=== PATIENT | male | born 1975 | race Caucasian/White ===

== ENCOUNTER 2024-01-05 06:03 | Inpatient (IN) ==
--- NOTE | 2023-11-08 14:54 | PAT Medication Instructions ---
Medication Instructions Date of Service November 08, 2023 Home Medications atorvastatin 10 mg tablet 10 mg PO HS empagliflozin 25 mg-linagliptin 5 mg tablet (Glyxambi) 1 tab PO QAM pantoprazole 40 mg tablet,delayed release 40 mg PO QAM STOP 3 days before surgery empagliflozin 25 mg-linagliptin 5 mg tablet (Glyxambi) 1 tab PO QAM Take morning of surgery With a small sip of water, OTHERWISE NOTHING TO EAT OR DRINK AFTER MIDNIGHT: pantoprazole 40 mg tablet,delayed release 40 mg PO QAM Take evening before surgery atorvastatin 10 mg tablet 10 mg PO HS Other Notes If you have any questions please call us at [phone] or [phone] or [phone] or [phone]
--- NOTE | 2023-11-12 11:08 | Anesthesiology Consultation ---
Date of Service November 12, 2023 Assessment & Plan (1) Encounter for pre-operative examination: - Check BSG AM DOS - Infectious disease screening: Per assessment on 11/12/23: No known infectious disease contacts or current infectious disease symptoms. No noted recent Covid positive test result. Chart Review Chart Review: Acceptable Risk for Surgery and Patient seen in Pre Admission Testing Teaching & Discussion Pre-Anesthesia Teaching/Discussion Notes: Instructed NPO after midnight before surgery,except medications with 15 cc of water. Medication instructions provided according to the PAT guidelines. History Surgery Operation Date: 11/29/23 10:05 Proposed Procedures p L3-S1 Revision Decompression and Fusion, Spinal Cord Monitoring - Benjamin Sanchez, Height/Weight Height: 5 ft 10 in Weight: 110.9 kg Allergies Allergy/AdvReac Type Severity Reaction Status Date / Time No Known Allergies Allergy Verified 11/08/23 14:06 Medications Home Medications Medication Instructions Recorded Confirmed Last Taken atorvastatin 10 mg tablet 10 mg PO HS 11/08/23 11/08/23 Unknown empagliflozin 25 mg-linagliptin 5 1 tab PO QAM 11/08/23 11/08/23 Unknown mg tablet (Glyxambi) pantoprazole 40 mg tablet,delayed 40 mg PO QAM 11/08/23 11/08/23 Unknown release Past Medical History Medical History Diabetes mellitus, type 2 NIDDM Spinal stenosis Degenerative disc disease Chronic back pain GERD (gastroesophageal reflux disease) Hypertension "borderline"- monitoring, no current medications Hyperlipidemia Exercise / Class Metabolic Activity II 4-5 Yardwork/Stairs/Walk up hill (one FS (no CP, no SOB)) Past Family History Family History Other No family history of adverse response to anesthesia Past Surgical History Surgical History S/P epidural steroid injection History of appendectomy As child S/P lumbar laminectomy 06/2022 ([facility] [place]/Dr Justice) Past Anesthesia History No Hx of Anesthesia Complications and No Family Hx of Anesthesia Complications History of PONV No Hx of Motion Sickness and History of PONV Social History Smoking Status: Never smoker Do You Dip or Chew Tobacco: No Hx Alcohol Use: No Hx Substance Use: No substance use type: does not use Review of Systems Patient denies chest pain, shortness of breath, dyspnea on exertion, fever, chills, cough, wheezing, palpitations. Physical Exam Vital Signs VITALS BP 134/90 P 75 TEMP 98.0 SP02 97%RA RESP 18 PHYSICAL Full cervical extension range of motion. Full TMJ range of motion. TMD 4 finger breaths Mallampati Score 2 Dentition: intact, + crown Lungs: clear throughout to auscultation Cardiac: regular rate and rhythm, no murmurs noted Spine: normal Extremities: no LE edema Lab Results Anesthesia Preop Results Results Anesthesia Widget: WBC 8.35 K/ul (4.8-10.8) 11/12/23 Hgb 16.7 g/dl (14.0-18.0) 11/12/23 Hct 46.7 % (42.0-52.0) 11/12/23 Plt 203 K/uL (130-400) 11/12/23 Na 138 mmol/L (136-145) 11/12/23 K 4.3 mmol/L (3.5-5.1) 11/12/23 Cl 104 mmol/L (98-107) 11/12/23 CO2 29 mmol/L (21-32) 11/12/23 BUN 20 mg/dl (6-23) 11/12/23 Creat 0.91 mg/dl (0.6-1.4) 11/12/23 Glucose Level 114 mg/dl (70-99(Fasting)) H 11/12/23 PT 10.3 Seconds (9.0-12.0) 11/12/23 PTT 29 Seconds (21-31) 11/12/23 INR 0.9 (0.9-1.1) 11/12/23 HA1c 8.4 % (4.5-5.6) H 11/12/23 Urine Color Yellow 11/12/23 Urine Appearance Clear (Clear) 11/12/23 Urine pH 5.5 (4.5-7.5) 11/12/23 Urine Specific [place] > 1.045 (1.000-1.030) H 11/12/23 Urine Protein Negative (Negative) 11/12/23 Urine Glucose (UA) 3+ (Negative) H 11/12/23 Urine Ketones Trace (Negative) H 11/12/23 Urine Blood Negative (Negative) 11/12/23 Urine Nitrite Negative (Negative) 11/12/23 Urine Bilirubin Negative (Negative) 11/12/23 Urine Urobilinogen Negative (Negative) 11/12/23 Urine Leukocyte Esterase Negative (Negative) 11/12/23 Blood Type O Positive 11/12/23 Antibody Screen NEGATIVE 11/12/23 Testing Laboratory Results Surgeon's office made aware of elevated A1C* Electrocardiogram Date: 11/12/23 NSR at 67bpm. Rightward axis. Chest X-Ray Date: 11/12/23 FINDINGS: No pneumothorax. No pleural effusions. No focal lung consolidations to suggest a pneumonia. No evidence for pulmonary edema. No acute fractures identified. The heart is normal in size. IMPRESSION: No acute process.
--- NOTE | 2023-12-29 14:11 | Anesthesiology Consultation ---
Date of Service December 29, 2023 Assessment & Plan (1) Encounter for pre-operative examination: - check BSG am DOS. - medical clearance 12/28/23: "...low risk...cleared for scheduled surgery..." - PCP office note 12/09/23: "...continue glipizide...worsening control, diet and medications discussed, continue monitoring...hypertension: stable...URI, acute..." Pt states only symptoms with URI were muscle aches, chills, congestion, sore throat-denies developing cough or shortness of breath. He states has significantly reduced amount of soda consumption in efforts to improve diabetic control since seeing his PCP. Chart Review Chart Review: Acceptable Risk for Surgery and Patient seen in Pre Admission Testing Teaching & Discussion Pre-Anesthesia Teaching/Discussion Notes: Instructed NPO after midnight before surgery, except medications with 15 cc of water. Medication instructions provided according to the PAT guidelines. History Surgery Operation Date: 11/29/23 10:05 Proposed Procedures p L3-S1 Revision Decompression and Fusion, Spinal Cord Monitoring - Benjamin Sanchez DO Operation Date: 01/05/24 11:05 Proposed Procedures p L3-S1 Revision Decompression and Fusion, Spinal Cord Monitoring - Benjamin Sanchez DO Height/Weight Height: 5 ft 10 in Weight: 110.9 kg Allergies Allergy/AdvReac Type Severity Reaction Status Date / Time metformin Allergy Intermediate GI upset Verified 12/29/23 15:17 tirzepatide [From Mounjaro] Allergy Intermediate GI upset Verified 12/29/23 15:17 rosuvastatin [From Crestor] AdvReac Intermediate paresthesia Verified 12/29/23 15:17 s Medications Home Medications Medication Instructions Recorded Confirmed Last Taken atorvastatin 10 mg tablet 10 mg PO HS 11/08/23 11/08/23 Unknown empagliflozin 25 mg-linagliptin 5 1 tab PO QAM 11/08/23 11/08/23 Unknown mg tablet (Glyxambi) pantoprazole 40 mg tablet,delayed 40 mg PO QAM 11/08/23 11/08/23 Unknown release Past Medical History Medical History (Updated 12/29/23 @ 14:17 by Trinh Robison PA-C) Chronic back pain Degenerative disc disease Diabetes mellitus, type 2 NIDDM GERD (gastroesophageal reflux disease) controlled, stable per pt Hyperlipidemia Hypertension "borderline"- monitoring, no current medications PONV (postoperative nausea and vomiting) denies needing scop patch Spinal stenosis Patient denies h/o stroke, seizures, heart attack, heart failure, HTN, blood clots/DVTs or blood transfusions. Exercise / Class Metabolic Activity II 4-5 Yardwork/Stairs/Walk up hill (denies chest discomfort or shortness of breath with 1 FOS) Past Family History Family History Other No family history of adverse response to anesthesia Past Surgical History Surgical History History of appendectomy As child S/P epidural steroid injection S/P lumbar laminectomy 06/2022 ([facility] [place]/Dr Justice) Past Anesthesia History No Hx of Anesthesia Complications and No Family Hx of Anesthesia Complications History of PONV No Hx of Motion Sickness and History of PONV (denies needing scop patch) Social History Smoking Status: Never smoker Do You Dip or Chew Tobacco: No Hx Alcohol Use: No Hx Substance Use: No substance use type: does not use Review of Systems Patient denies chest pain, shortness of breath, dyspnea on exertion, snoring, witnessed apneas, reflux, fever, chills, cough, wheezing, or palpitations. Physical Exam Vital Signs Vitals BP 142/89 P 82 TEMP 98 SP02 98% on RA RESP 18 Physical Patient resting comfortably in chair in no acute distress, alert and oriented, responding appropriately throughout visit Full cervical extension range of motion without pain TMD 3.5 finger breadths Mallampati Score 3 Dentition: intact, denies chipped or loose teeth, caps/crowns, implants or bridges Lungs: normal respiratory effort. Good air movement, clear throughout to auscultation, no adventitious breath sounds Cardiac: regular rate and rhythm, no murmurs noted Carotid arteries: negative bruit bilat Lab Results Anesthesia Preop Results Results Anesthesia Widget: WBC 8.35 K/ul (4.8-10.8) 11/12/23 Hgb 16.7 g/dl (14.0-18.0) 11/12/23 Hct 46.7 % (42.0-52.0) 11/12/23 Plt 203 K/uL (130-400) 11/12/23 Na 138 mmol/L (136-145) 11/12/23 K 4.3 mmol/L (3.5-5.1) 11/12/23 Cl 104 mmol/L (98-107) 11/12/23 CO2 29 mmol/L (21-32) 11/12/23 BUN 20 mg/dl (6-23) 11/12/23 Creat 0.91 mg/dl (0.6-1.4) 11/12/23 Glucose Level 114 mg/dl (70-99(Fasting)) H 11/12/23 PT 10.3 Seconds (9.0-12.0) 11/12/23 PTT 29 Seconds (21-31) 11/12/23 INR 0.9 (0.9-1.1) 11/12/23 HA1c 8.4 % (4.5-5.6) H 11/12/23 Urine Color Yellow 12/29/23 Urine Appearance Clear (Clear) 12/29/23 Urine pH 5.5 (4.5-7.5) 12/29/23 Urine Specific [place] 1.042 (1.000-1.030) H 12/29/23 Urine Protein Negative (Negative) 12/29/23 Urine Glucose (UA) 3+ (Negative) H 12/29/23 Urine Ketones Negative (Negative) 12/29/23 Urine Blood Negative (Negative) 12/29/23 Urine Nitrite Negative (Negative) 12/29/23 Urine Bilirubin Negative (Negative) 12/29/23 Urine Urobilinogen Negative (Negative) 12/29/23 Urine Leukocyte Esterase Negative (Negative) 12/29/23 Blood Type O Positive 11/12/23 Antibody Screen NEGATIVE 11/12/23 Testing Laboratory Results Surgeon's office made aware UA was updated and of elevated A1c. Electrocardiogram Date: 11/12/23 NSR, rate 67 bpm Rightward axis Chest X-Ray Date: 11/12/23 No acute process.
[~2024-01-05 06:03] MED LIST: ACETAMINOPHEN 500 MG TAB PO SCH; CeleBREX 200 MG CAP PO SCH; GABAPENTIN 900 MG DOSE PO SCH; LR 15ML/HR IV SCH; LR 60ML/HR IV SCH; ceFAZolin 2000MG 2,000 MG/15 ML SYR IV SCH
[2024-01-05] MEDS ORDERED: PROPOFOL IV EMULSION 10 MG/ML 20 ML VIAL IV ONE (06:47)
[2024-01-05] MEDS ORDERED: LIDOCAINE 2% 2 ML VIAL/AMP(20MG/ML) INFIL ONE (06:47)
[2024-01-05] MEDS ORDERED: GLYCOPYRROLATE 0.2 MG/ML VIAL ONE (06:47)
[2024-01-05] MEDS ORDERED: MIDAZOLAM HCL 1 MG/ML 2ML VIAL ONE (06:47)
[2024-01-05] MEDS ORDERED: DEXAMETHASONE SOD INJ 4 MG/ML VIAL ONE (06:47)
[2024-01-05] MEDS ORDERED: fentaNYL citrate PF 100 MCG/2 ML VIAL ONE ×2 (06:47→08:20)
[2024-01-05] MEDS ORDERED: ONDANSETRON INJ 2 MG/ML 2 ML VIAL ONE (06:47)
[2024-01-05] MEDS ORDERED: ROCURONIUM BROMIDE 10 MG/ML 5 ML VIAL IV ONE ×2 (06:47→09:48)
[2024-01-05] MEDS ORDERED: SUGAMMADEX SODIUM 200 MG/2 ML VIAL IV ONE (06:50)
[2024-01-05] MEDS: GABAPENTIN 900 MG DOSE PO SCH (06:58)
[2024-01-05] MEDS: CeleBREX 200 MG CAP PO SCH (06:58)
[2024-01-05] MEDS: ACETAMINOPHEN 500 MG TAB PO SCH (06:58)
[2024-01-05] MEDS: LR 60ML/HR IV SCH (06:59)
[2024-01-05] MEDS: LR 15ML/HR IV SCH (06:59)
[2024-01-05] MEDS ORDERED: DROPERIDOL 5 MG/2 ML VIAL IV PRN (07:06)
[2024-01-05] MEDS ORDERED: ONDANSETRON INJ 2 MG/ML 2 ML VIAL IV PRN (07:06)
[2024-01-05] MEDS ORDERED: ATROPINE SULFATE 0.1 MG/ML 10ML SYR IV PRN (07:06)
[2024-01-05] MEDS ORDERED: ePHEDrine sulfate 50 MG/ML AMP IV PRN (07:06)
[2024-01-05] MEDS ORDERED: HYDROmorphone INJ 2 MG/ML SYR/VIAL IV PRN (07:06)
--- NOTE | 2024-01-05 07:49 | History & Physical Bridge Note ---
Date of Service January 05, 2024 History & Physical Bridge Note I have examined the patient, reviewed the History & Physical and in the interval since the performance of the History & Physical I have noted the following changes of clinical significance: no changes noted
--- NOTE | 2024-01-05 07:50 | History & Physical Report ---
Date of Service January 05, 2024 Assessment & Plan (1) Neurogenic claudication due to lumbar spinal stenosis: Plan: L3-S1 revision decompression and fusion History of Present Illness Chief Complaint: Back and leg pain Primary Care Provider: Prince Dowd This is a 40-year-old male who presents chronic persistent back and leg pain a failed course of nonoperative care is here for surgical invention. Allergies Allergy/AdvReac Type Severity Reaction Status Date / Time metformin Allergy Intermediate GI upset Verified 01/05/24 06:40 tirzepatide [From Mounjaro] Allergy Intermediate GI upset Verified 01/05/24 06:40 rosuvastatin [From Crestor] AdvReac Intermediate paresthesia Verified 01/05/24 06:40 s Home Medications Medication Instructions Recorded Confirmed Type atorvastatin 10 mg tablet 10 mg PO HS 11/08/23 01/05/24 History empagliflozin 25 mg-linagliptin 5 1 tab PO QAM 11/08/23 01/05/24 History mg tablet (Glyxambi) pantoprazole 40 mg tablet,delayed 40 mg PO QAM 11/08/23 01/05/24 History release Past Med/Surg History Medical History (Updated 01/05/24 @ 07:50 by Benjamin Sanchez DO) PONV (postoperative nausea and vomiting) denies needing scop patch Diabetes mellitus, type 2 NIDDM Spinal stenosis Degenerative disc disease Chronic back pain GERD (gastroesophageal reflux disease) controlled, stable per pt Hypertension "borderline"- monitoring, no current medications Hyperlipidemia Surgical History S/P epidural steroid injection History of appendectomy As child S/P lumbar laminectomy 06/2022 ([facility] [place]/Dr Justice) Family History Other No family history of adverse response to anesthesia Social History Smoking Status: Never smoker Second Hand Exposure: No; Do You Dip or Chew Tobacco: No; Tobacco Cessation Education Requested by Patient: No Hx Alcohol Use: No Hx Substance Use: No Preferred Language: Lebanese Communication Ability: Effective Hearing Care Professional Required: No Beliefs That Will Affect Care: None Current Living Situation: Spouse and Family Other Information That Helps Us Care for You: No Feels Safe at Home: Yes Safety Concerns: Feels Safe At This Time Physical Exam Physical Exam: Patient is alert and oriented Heart regular rhythm Lungs clear Results & Data Results & Data Vital Signs (Past 12 Hours) Vital Signs Temp Pulse Resp BP Pulse Ox O2 Del Method 01/05/24 06:44 36.8 C 93 H 20 164/105 H 97 Room Air
[2024-01-05] MEDS: ceFAZolin 2000MG 2,000 MG/15 ML SYR IV SCH ×2 (07:59→17:08)
[2024-01-05] MEDS: BUPIVACAINE/EPINEPHRINE 0.5% MPF 1:200,000 30 ML VIAL ONE (08:46)
[2024-01-05] MEDS: FLOSEAL HEMOSTATIC MATRIX 10ML TOP ONE (10:32)
[2024-01-05] MEDS: ceFAZolin 330 MG/ML 1 GM VIAL ONE (10:32)
--- NOTE | 2024-01-05 10:47 | Operative Report ---
Post Operative Report Pre & Post Diagnosis Operation Date: 01/05/24 07:45 Pre-Op Diagnosis: Neurogenic Claudication Due to Lumbar Spinal Stenosis L3-S1 Post-Op Diagnosis: Neurogenic Claudication Due to Lumbar Spinal Stenosis L3-S1 I identified the patient and participated in the time-out.: Yes Procedure Operation Date: 01/05/24 07:45 Actual Procedures #1 revision decompression bilaterally facetectomies and foraminotomies L3-L4, L4-L5 and L5-S1. #2 posterior spinal fusion L3-L4 L4-5 L5-S1. #3 placed posterior segmental instrumentation L3-S1. #4 interbody fusion L3-L4, L4-5 and L5-S1. #5 placement spiral 13 x 26 mm at L3-L4, 13 x 26 mm at L4-5 and 14 x 26 mm x 2 at L5-S1. #6 placement locally harvested morselized autograft in the posterior gutters. #7 placement of Morpheus bone graft in the interbody space and infuse collagen sponge combined with Koros in the posterior lateral gutters. Surgeon Benjamin Sanchez, DO Aircraft Instrument Tester Grisel Carson Estimated Blood Loss 450 Findings See Below The patient is 5 foot 10 weighing over 112 kg with a BMI in excess of 35. The patient's body habitus did contribute to significant technical difficulty with positioning exposure and the procedure itself and at least 50% increased operative time. Specimens None Indications This is a 48-year-old male presents above-mentioned diagnosis of failed course of nonoperative care is here for surgical invention. Description of Procedure Patient met with identified informed consent obtained. Patient was then taken to the operative suite underwent patient placed in prone position on the Jonny table on top the Chay frame. All bony promises well-padded eyes inspected to ensure no external precipice spinal. This point the lumbar spine was prepped and draped in a sterile fashion. Sharp dissection with the assistance of Bovie cautery probe down to and exposing the remaining lamina and transverse processes of L3 L4-5 and sacral ala bilaterally. From a caudal cephalad fashion revision complete laminectomy of L5 L4 and L3 was performed including bilateral medial facetectomies and foraminotomies addressing severe spinal stenosis and marked adhesions from the previous surgery. Pedicle screws were then placed at L3-L4-L5 and S1 levels bilaterally with assistance of fluoroscopy in the process vale placed. By way of a trans foraminal approach on the left discectomy of L5- S1 was performed endplates guarded to subcortical bleeding bone and the 14 x 26 mm Spira cage filled with Morpheus bone graft tapped in position. Then proceeded the right side of L5-S1 completed the discectomy through a transforaminal approach endplates curetted to subcortical mean bone and placed a second 14 x 26 mm Spira cage with Morpheus bone graft and condition. Then proceeded to L 4 L5 and again by way of a transforaminal approach on the left complete discectomy performed endplates guarded to subcortical bleeding bone and a 13 x 26 mm spiral cage with Morpheus tapped into position. Lastly I approached L3-L4 by way of a transforaminal approach the left complete disce ctomy performed endplates could do subcortical mean bone and a 13 x 26 mm Spira cage filled with Morpheus bone graft tapped in position. The rods were then compressed locked in final position bilaterally. The transverse processes of L2-L3 L4-5 and sacral ala burred to subcortical bleeding bone. Infuse collagen sponge combined with Koros placed in the posterior gutters. 15 round LIBORIO inserted. The incision was then closed with 1 Vicryl to fascia 2-0 Vicryl subcutaneously and 4 Monocryl for final closure. Steri-Strips sterile dressings placed. Patient waken taken PACU stable condition. Please note spinal cord monitoring was utilized at the procedure no changes noted. Lastly Grisel Carson is present at the entire surgery and all the patient positioning complex portion of the surgery and final skin closure. I attest to the content of the Intraoperative Record and any orders documented therein. Any exceptions are noted below.
--- NOTE | 2024-01-05 10:52 | Fluoroscopy Report ---
FL lumbar spine 2-3V CLINICAL HISTORY: L3-S1 REVISION DECOMPRESSION/FUSION COMPARISON STUDY: None. FLUOROSCOPY TIME: 27 seconds FLUOROSCOPY IMAGES: 2 Ka,r: 24.1 mGy FINDINGS: Posterior decompression and fusion from L3 through S1 with screws and rods. The hardware ap pears intact. Disc spacers are in place. IMPRESSION: Fluoroscopic assistance as above. ACT 112: Negative or not required by law. Electronically signed by: Stef Lr M.D. 01/05/2024 10:51 AM
[2024-01-05] MEDS: fentaNYL citrate PF 100 MCG/2 ML VIAL IV PRN (11:25)
[2024-01-05] MEDS ORDERED: ALUMINUM/MAGNESIUM SUSP 30 ML UDC PO PRN (11:57)
[2024-01-05] MEDS ORDERED: HYDROmorphone INJ 0.5 MG/0.5 ML SYR IV PRN (11:57)
[2024-01-05] MEDS ORDERED: PHARMACY GLYCEMIC MGMT CONSULT PRN (11:57)
[2024-01-05] MEDS ORDERED: hydrOXYzine HCl 25 MG TAB PO PRN (11:57)
[2024-01-05] MEDS ORDERED: SOD PHOSPHATE/SOD BIPHOSPHATE ENEMA 132 ML BTL PR PRN (11:57)
[2024-01-05] MEDS ORDERED: PROMETHAZINE HCL 12.5 MG in SODIUM CHLORIDE 0.9% 50 ML IV PRN (11:57)
[2024-01-05] MEDS ORDERED: diphenhydrAMINE Capsule 25 MG CAP PO PRN (11:57)
[2024-01-05] MEDS ORDERED: ACETAMINOPHEN 1,000 MG/100 ML VIAL IV PRN (11:57)
[2024-01-05] MEDS ORDERED: NALOXONE HCL 0.4 MG/1 ML VIAL/CARP IV PRN (11:57)
[2024-01-05] MEDS ORDERED: LORazepam 0.5 MG TAB PO PRN (11:57)
[2024-01-05] MEDS ORDERED: METOCLOPRAMIDE HCL INJ 5 MG/ML 2 ML VIAL IV PRN (11:57)
[2024-01-05] MEDS ORDERED: DO NOT ADMINISTER FLU VACCINE PRN (11:57)
[2024-01-05] MEDS ORDERED: ONDANSETRON 4 MG OD TAB PO PRN (11:57)
[2024-01-05] MEDS ORDERED: HYDROmorphone INJ 1 MG/ML SYRINGE IV PRN (11:57)
[2024-01-05] MEDS ORDERED: LORazepam 0.5 MG in SYRINGE 0.25 ML IV PRN (11:57)
[2024-01-05] MEDS ORDERED: bisacodyL 10 MG SUPP PR PRN (11:57)
[2024-01-05] MEDS ORDERED: DO NOT ADMINISTER PNEUMOCOCCAL VACCINE PRN (11:57)
[2024-01-05] MEDS ORDERED: FAMOTIDINE 20 MG TAB PO PRN (11:57)
[2024-01-05] MEDS: KETOROLAC 30 MG/ML VIAL IV SCH (12:17)
[2024-01-05] MEDS: LACTATED RINGER'S 1,000 ML IV SCH (12:18)
--- NOTE | 2024-01-05 12:18 | Consultation ---
Date of Consultation January 05, 2024 Assessment & Plan (1) S/P spinal surgery: (2) Neurogenic claudication due to lumbar spinal stenosis: Post op day# 0 S/P L3-S1 decompression and fusion by Dr Laura RIVERA # 450 mL Pain management per ortho Wound management per ortho PT/OT as appropriate DVT prophylaxis per ortho Incentive spirometry Monitor H&H for acute blood loss anemia, pre-op Hgb: 16 on 11/12/23 (3) Diabetes mellitus, type 2: A1c: 8.2 on 12/02/2023 (per PCP outpatient note) Hold home oral glycemic agent NovoLog sliding scale per protocol. Glycemic pharmacist managing. Appreciate glycemic management (4) Hyperlipidemia: Continue atorvastatin (5) Hypertension: Reported borderline hypertension Not currently on antihypertensive medications Monitor BP (6) GERD (gastroesophageal reflux disease): Continue PPI (7) Obesity (BMI 30-39.9): BMI: 35 Lifestyle modifications Previously tried Mounjaro with GI side effects DVT Prophylaxis SCDs per ortho Disposition Per primary service Follows with Cirilo SLOAN at [facility] in [place], [place] for routine care Pt was seen and care coordinated with Dr Hooks. See addendum Thank you for this consultation. We will follow the patient with you during their hospital stay. You can reach a [facility] via [facility] Supervising Physician Co-Signing Physician Notes Patient is a 48-year-old male with history of diabetes mellitus, hypertension and other medical problems was consulted for postop medical management. Patient is doing well postoperatively. He denies any chest pain, dyspnea, nausea, vomiting, abdominal pain. Back pain at surgical site is controlled. On exam patient is obese, no apparent distress, normocephalic/atraumatic, EOMI, normal breath sounds, clear to auscultation, S1-S2, no murmur, no pedal edema, abdomen soft, nontender, normal bowel sounds, back: Surgical site in dressing,+ drain, alert, awake, oriented, grossly no focal deficits. Lumbar spinal stenosis with neurogenic claudication S/P lumbar decompression, fusion surgery by Dr. Sanchez. DVT prophylaxis, activity, wound care as per primary team. Continue bowel regimen to prevent constipation. Continue incentive spirometry. Advance diet as tolerated. Monitor CBC for postop blood loss anemia. Agree with insulin per protocol for diabetes management. Monitor BGs. I personally interviewed and examined at bedside. Patient's care is coordinated with Nelly Cunningham. I have reviewed the advanced practitioner's documentation, and I agree with, and take responsibility for that plan of care. Please refer to the documentation above for details of patient's presentation and for discussion of other issues. I spent a total [id number] coordinating, documenting, and providing care for this patient excluding time spent in the performance of separately billed services. History of Present Illness Requesting Physician: Dr. Sanchez Reason for Consultation: Medical management Attending Physician: Benjamin Sanchez, History of Present Illness * Patient is a 48-year-old male with PMH HTN, HLD, DM II, GERD, obesity seen in medical consultation s/p L3-S1 decompression and fusion today by Dr. Sanchez. PMH and home medications discussed with patient and patient's who is at bedside. Postop patient reports pain controlled. Has Pantoja catheter in place. Reports last BM this morning. Denies fever/chills, N/V/D/C, SHOEMAKER, dizziness, CP, SOB, cough, sore throat, abdominal pain, paresthesias, extremity weakness, extremity edema, rashes, urinary symptoms. Allergies Allergy/AdvReac Type Severity Reaction Status Date / Time metformin Allergy Intermediate GI upset Verified 01/05/24 06:40 tirzepatide [From Mounjaro] Allergy Intermediate GI upset Verified 01/05/24 06:40 rosuvastatin [From Crestor] AdvReac Intermediate paresthesia Verified 01/05/24 06:40 s Home Medications Medication Instructions Recorded Confirmed Type atorvastatin 10 mg tablet 10 mg PO HS 11/08/23 01/05/24 History empagliflozin 25 mg-linagliptin 5 1 tab PO QAM 11/08/23 01/05/24 History mg tablet (Glyxambi) pantoprazole 40 mg tablet,delayed 40 mg PO QAM 11/08/23 01/05/24 History release Patient History Medical History Obesity (BMI 30-39.9) PONV (postoperative nausea and vomiting) denies needing scop patch Diabetes mellitus, type 2 NIDDM Spinal stenosis Degenerative disc disease Chronic back pain GERD (gastroesophageal reflux disease) controlled, stable per pt Hypertension "borderline"- monitoring, no current medications Hyperlipidemia Surgical History S/P epidural steroid injection History of appendectomy As child S/P lumbar laminectomy 06/2022 ([facility]/Dr Justice) Family History Father Coronary heart disease Dyslipidemia Hypertension Mother Hypertension Other No family history of adverse response to anesthesia Social History Smoking Status: Never smoker Second Hand Exposure: No; Do You Dip or Chew Tobacco: No; Tobacco Cessation Education Requested by Patient: No Hx Alcohol Use: No Hx Substance Use: No Preferred Language: Spanish Communication Ability: Effective 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 Beliefs That Will Affect Care: None Current Living Situation: Spouse and Family Other Information That Helps Us Care for You: No Feels Safe at Home: Yes Safety Concerns: Feels Safe At This Time Review of Systems Review of Systems: All systems reviewed & are unremarkable except as noted in HPI & below Physical Exam Physical Exam: General: no distress, obese Head: normocephalic, atraumatic Eyes: conjunctiva non-injected, anicteric ENT: normal inspection external ears, nose, mucous membranes moist Neck: supple, trachea midline Lungs: clear, no respiratory distress, no wheezing/rhonchi/rales CV: RRR, no murmur, no pretibial edema Abd: normal BS, soft, non-tender Ext: no cyanosis, no calf tenderness, bilateral dorsiflexion, plantar flexion intact, distal pulses intact, +sensation to light touch Neuro: A&O x 3, no focal deficits noted, normal affect Skin: warm, dry Results & Data Vital Signs (Past 12 Hours) Vital Signs Temp Pulse Pulse Pulse Resp BP Pulse Ox 01/05/24 12:07 01/05/24 11:55 36.9 C 73 14 136/84 97 01/05/24 11:40 36.9 C 82 16 134/86 95 01/05/24 11:30 94 H 15 140/90 96 01/05/24 11:20 80 16 116/79 96 01/05/24 11:10 78 13 118/78 96 01/05/24 11:00 37.2 C 74 12 98/56 L 96 01/05/24 06:44 36.8 C 93 H 20 164/105 H 97 O2 Del Method O2 Flow Rate 01/05/24 12:07 Nasal Cannula 2 01/05/24 11:55 Nasal Cannula 2 01/05/24 11:40 Nasal Cannula 2 01/05/24 11:30 Nasal Cannula 2 01/05/24 11:20 Oxymask 6 01/05/24 11:10 Oxymask 6 01/05/24 11:00 Oxymask 6 01/05/24 06:44 Room Air
--- NOTE | 2024-01-05 13:12 | Pharmacy Report ---
Pharmacy Glycemic Short Note 2 - Date of Service January 05, 2024 - Glycemic Short BSG Results (Last 24 hours): 01/05/24 01/05/24 01/05/24 06:34 11:03 12:52 POC Glucose 181 H 204 H 227 H OUTPATIENT ANTIDIABETIC REGIMEN: * Glyxambi (empaglifozin 25mg/linagliptin 2mg) #1 tablet daily * HbA1c 8.4% (11/12/23) ASSESSMENT: * Rodriguez is a 48 YOM admitted status post L3-S1 spinal decompression/fusion and a history fo type 2 diabetes mellitus. Pharmacy has been consulted to assist with glycemic management while inpatient. * Fasting BSG this AM initiate Lantus at a ~0.2 units/kg to cover basal needs and preop steroids. * Currently receiving perioperative Ancef and will receive IV dexamethasone 6mg x3 days. * Novolog initiated at a weight based stress of 3 based on AdjBW. PLAN FOR INPATIENT GLYCEMIC CONTROL: * Hold outpatient oral diabetes medications * Basal insulin * Lantus 20 units SQ daily * Bolus insulin * NovoLog per scale ACHS or Q6hrs while NPO * Goal Range: Low 110 mg/dL - High 140 mg/dL * Correction Factor: 20 mg/dL/unit * Nutritional / Prandial insulin per carb ratio of 1 unit per 6 grams CHO consumed
--- NOTE | 2024-01-05 13:24 | Anesthesiology Progress Note ---
Date of Service January 05, 2024 Anesthesia Post Procedure Vital Signs Vital Signs: Temp Pulse Pulse Pulse Resp BP Pulse Ox 01/05/24 12:51 88 16 135/79 98 01/05/24 12:22 36.5 C 82 16 131/77 97 01/05/24 12:07 01/05/24 11:55 36.9 C 73 14 136/84 97 01/05/24 11:40 36.9 C 82 16 134/86 95 01/05/24 11:30 94 H 15 140/90 96 01/05/24 11:20 80 16 116/79 96 01/05/24 11:10 78 13 118/78 96 01/05/24 11:00 37.2 C 74 12 98/56 L 96 01/05/24 06:44 36.8 C 93 H 20 164/105 H 97 O2 Del Method O2 Flow Rate 01/05/24 12:51 Nasal Cannula 2 01/05/24 12:22 Nasal Cannula 2 01/05/24 12:07 Nasal Cannula 2 01/05/24 11:55 Nasal Cannula 2 01/05/24 11:40 Nasal Cannula 2 01/05/24 11:30 Nasal Cannula 2 01/05/24 11:20 Oxymask 6 01/05/24 11:10 Oxymask 6 01/05/24 11:00 Oxymask 6 01/05/24 06:44 Room Air Pain Intensity Back: Pain Intensity: 6 Transfer of Care Handoff Completed per policy Notes Mental Status: alert / awake / arousable and participated in evaluation Patient Amnestic to Procedure: Yes Nausea / Vomiting: adequately controlled Pain: adequately controlled Airway Patency, RR, SpO2: stable & adequate BP & HR: stable & adequate Hydration State: stable & adequate Anesthetic Complications: no major complications apparent and Pt Satisfied with anesthetic care
[2024-01-05] MEDS: LANTUS PER UNIT CHARGE SC SCH (13:49)
[2024-01-05] MEDS: INSULIN ASPART PER UNIT CHARGE SC SCH (13:52)
[2024-01-05] MEDS: ACETAMINOPHEN 500 MG TAB PO PRN (15:14)
[2024-01-05] MEDS: ONDANSETRON INJ 2 MG/ML 2 ML VIAL IV PRN (16:22)
[2024-01-05] MEDS: traMADol HCL 50 MG TABLET PO PRN (20:40)
[2024-01-05] MEDS: DOCUSATE SODIUM/SENNA 50/8.6MG TAB PO SCH (20:40)
[2024-01-05] MEDS: ATORVASTATIN 10 MG TAB PO SCH (20:40)
[2024-01-05] MEDS: oxyCODONE HCL IR 5 MG TAB (IMMEDIATE RELEASE) PO PRN (23:05)
[2024-01-06] MEDS: POLYETHYLENE (MIRALAX) 17 GM PACK PO SCH (05:22)
[2024-01-06 07:26] LABS: Basophils # (auto) 0.01 K/uL (0.00-0.20); Basophils % (auto) 0.1 %; Eosinophils # (auto) 0.02 K/uL (0.00-0.50); Eosinophils % (auto) 0.2 %; Hematocrit (blood only) 35.1 % (42.0-52.0); Hemoglobin 12.2 g/dl (14.0-18.0); Immature Granulocytes # (auto) 0.03 K/uL (0.01-0.20); Immature Granulocytes % (auto) 0.2 %; Lymphocytes # (auto) 1.51 K/uL (1.20-3.40); Lymphocytes % (auto) 12.5 %; Mean Corpuscular Hemoglobin 30.7 pg (25.0-34.0); Mean Corpuscular Hgb Conc 34.8 g/dL (32.0-36.0); Mean Corpuscular Volume 88.4 fL (80.0-100.0); Mean Platelet Volume 11.4 fL (9.4-12.4); Monocytes % (auto) 9.1 %; Neutrophils # (auto) 9.39 K/uL (1.40-6.50); Neutrophils % (auto) 77.9 %; Platelet Count 162 K/uL (130-400); RDW Standard Deviation 42.2 fL (36.4-46.3); Red Blood Count 3.97 M/uL (4.70-6.10); White Blood Count 12.06 K/ul (4.8-10.8)
[2024-01-06 07:54] LABS: BUN Creatinine Ratio 19.7 (10-20); Calcium 8.5 mg/dl (8.6-10.3); Creatinine Clr Calc Pharmacy 159.8 ml/min; Est GFR (African American) 128.6 ml/min; Potassium 3.9 mmol/L (3.5-5.1)
--- NOTE | 2024-01-06 08:15 | Orthopedic Progress Note ---
Date of Service January 06, 2024 Assessment & Plan (1) Neurogenic claudication due to lumbar spinal stenosis: Plan: This time initiate physical therapy monitor his LIBORIO output anticipate discharge home in next few days. Admission and Anticipated Discharge Date Admission Date: January 05, 2024 Subjective Back pain controlled leg symptoms markedly improved Physical Exam Physical Exam: Patient is currently in bed. Is comfortable. Is distracted testing. Results & Data Vital Signs (Past 12 Hours) Vital Signs Temp Pulse Resp BP Pulse Ox O2 Del Method 01/06/24 07:48 36.8 C 95 H 17 121/77 96 Room Air 01/06/24 02:24 36.5 C 80 18 138/75 97 Room Air 01/05/24 23:18 36.8 C 76 16 101/73 97 Room Air Queries Orthopedic Spine Obesity: Yes
[2024-01-06] MEDS: dexAMETHasone 6 MG in SYRINGE 0 ML IV SCH (08:27)
[2024-01-06] MEDS: PANTOprazole 40 MG TAB PO SCH (08:27)
[2024-01-06] MEDS: LANTUS PER UNIT CHARGE SC SCH (08:27)
[2024-01-06] MEDS ORDERED: GLUCOSE 40% GEL 15 GM TUBE PO PRN (08:30)
[2024-01-06] MEDS ORDERED: GLUCOSE 10 TAB/TUBE PO PRN (08:30)
[2024-01-06] MEDS ORDERED: CARBOHYDRATES FOR HYPOGLYCEMIA PO PRN (08:30)
[2024-01-06] MEDS ORDERED: DEXTROSE 50% 50 ML SYRINGE IV PRN (08:30)
[2024-01-06] MEDS ORDERED: GLUCAGON FOR INJ 1 MG VIAL IM PRN (08:30)
[2024-01-06] MEDS ORDERED: NON-FORMULARY MEDICATION (Empagliflozin-Linagliptin [Glyxambi] 25-5 mg Tablet) PO SCH (09:00)
--- NOTE | 2024-01-06 10:49 | Pharmacy Report ---
Pharmacy Glycemic Short Note 2 - Date of Service January 06, 2024 - Glycemic Short BSG Results (Last 24 hours): 01/05/24 01/05/24 01/05/24 11:03 12:52 16:23 Glucose POC Glucose 204 H 227 H 296 H 01/05/24 01/06/24 01/06/24 20:39 06:23 07:49 Glucose 143 H POC Glucose 232 H 161 H OUTPATIENT ANTIDIABETIC REGIMEN: * Glyxambi (empaglifozin 25mg/linagliptin 2mg) #1 tablet daily * HbA1c 8.4% (11/12/23) ASSESSMENT: 01/06/24: * BSGs yesterday were [phone] mg/dl. Fasting BSG today was 143 mg/dl. * Patient received total 58 units of insulin yesterday: 20 units basal and 38 units bolus. * IV Dexamethasone 6mg daily x 3 days ordered, 1st dose received today. * Since BSGs have been high, basal insulin dose increased to stress of 3 today. Novolog parameters tightened also to stress of 3. 01/05/24: * Rodriguez is a 48 YOM admitted status post L3-S1 spinal decompression/fusion and a history fo type 2 diabetes mellitus. Pharmacy has been consulted to assist wit h glycemic management while inpatient. * Fasting BSG this AM initiate Lantus at a ~0.2 units/kg to cover basal needs and preop steroids. * Currently receiving perioperative Ancef and will receive IV dexamethasone 6mg x3 days. * Novolog initiated at a weight based stress of 3 based on AdjBW. PLAN FOR INPATIENT GLYCEMIC CONTROL: * Hold outpatient oral diabetes medications * Basal insulin * Lantus 28 units SQ QAM * Bolus insulin * NovoLog per scale ACHS or Q6hrs while NPO * Goal Range: Low 110 mg/dL - High 140 mg/dL * Correction Factor: 15 mg/dL/unit * Nutritional / Prandial insulin per carb ratio of 1 unit per 5 grams CHO consumed
--- NOTE | 2024-01-06 13:31 | Hospitalist Progress Note ---
Date of Service January 06, 2024 Assessment & Plan (1) S/P spinal surgery: (2) Neurogenic claudication due to lumbar spinal stenosis: Plan: Post op day# 01 S/P L3-S1 decompression and fusion by Dr Laura RIVERA # 450 mL Continue pain management Wound management per ortho Hb is 12.2 today (was 16 in Oct 2023) Likely Acute blood loss anemia related to surgery Monitor Hb PT/OT as appropriate (3) Diabetes mellitus, type 2: Plan: A1c: 8.2 on 12/02/2023 (per PCP outpatient note) Hold home oral glycemic agent NovoLog sliding scale per protocol. Glycemic pharmacist managing. Appreciate glycemic management (4) Hyperlipidemia: Plan: Continue atorvastatin (5) GERD (gastroesophageal reflux disease): Plan: Continue PPI (6) Obesity (BMI 30-39.9): Plan: BMI: 35 Lifestyle modifications Previously tried Mounjaro with GI side effects DVT Prophylaxis SCDs per ortho Disposition Per primary service Follows with Cirilo SLOAN at [facility] in [place], [place] for routine care I spent a total of 45 minutes coordinating, documenting and providing care for this patient excluding time spent in performance of separately billed services Admission and Anticipated Discharge Date Admission Date: January 05, 2024 Subjective Patient seen and examined Reports surgical site pain is well controlled Reports radiculopathic pain that usually radiates down his LLE that he had before surgery has resolved so far Denied any other complaints on ROS Physical Exam Constitutional: + well hydrated; no acute distress Eyes: PERRL, conjunctivae normal, anicteric sclerae ENMT: external ear and nose normal, oropharynx normal Respiratory: normal respiratory effort, lungs clear to auscultation Cardiovascular: Rate/Rhythm: regular rate and regular rhythm S1 S2 Gastrointestinal (Abdomen): normal bowel sounds, soft, nontender, no hepatosplenomegaly Musculoskeletal: Clean dressing over surgical site with drain situ Neurologic: PERRL, EOMI, accommodation nl, no face palsy, no dysarthria Psychiatric: A+Ox3, euthymic affect Results & Data Results & Data Vital Signs (Past 12 Hours) Vital Signs Temp Pulse Resp BP Pulse Ox O2 Del Method 01/06/24 11:44 36.7 C 76 17 122/77 96 Room Air 01/06/24 07:48 36.8 C 95 H 17 121/77 96 Room Air 01/06/24 02:24 36.5 C 80 18 138/75 97 Room Air Laboratory Results Abnormal lab results 01/05/24 01/05/24 01/06/24 Range/Units 16:23 20:39 06:23 WBC 12.06 H (4.8-10.8) K/ul RBC 3.97 L (4.70-6.10) M/uL Hgb 12.2 L (14.0-18.0) g/dl Hct 35.1 L (42.0-52.0) % Neut # (Auto) 9.39 H (1.40-6.50) K/uL Jenkins # (Auto) 1.10 H (0.11-0.59) K/uL Glucose 143 H (70-99(Fasting)) mg/dl POC Glucose 296 H 232 H (70-99) mg/dl Calcium 8.5 L (8.6-10.3) mg/dl 01/06/24 01/06/24 Range/Units 07:49 11:38 WBC (4.8-10.8) K/ul RBC (4.70-6.10) M/uL Hgb (14.0-18.0) g/dl Hct (42.0-52.0) % Neut # (Auto) (1.40-6.50) K/uL Jenkins # (Auto) (0.11-0.59) K/uL Glucose (70-99(Fasting)) mg/dl POC Glucose 161 H 194 H (70-99) mg/dl Calcium (8.6-10.3) mg/dl
[2024-01-07 08:42] LABS: Hematocrit (blood only) 36.7 % (42.0-52.0); Hemoglobin 12.5 g/dl (14.0-18.0); Mean Corpuscular Hemoglobin 30.8 pg (25.0-34.0); Mean Corpuscular Hgb Conc 34.1 g/dL (32.0-36.0); Mean Corpuscular Volume 90.4 fL (80.0-100.0); Mean Platelet Volume 10.8 fL (9.4-12.4); Platelet Count 153 K/uL (130-400); RDW Coefficient of Variation 12.9 % (11.5-14.5); RDW Standard Deviation 42.5 fL (36.4-46.3); Red Blood Count 4.06 M/uL (4.70-6.10); White Blood Count 10.54 K/ul (4.8-10.8)
[2024-01-07 09:03] LABS: BUN Creatinine Ratio 23.9 (10-20); Calcium 8.8 mg/dl (8.6-10.3); Creatinine Clr Calc Pharmacy 159.8 ml/min; Est GFR (African American) 128.6 ml/min; Potassium 4.1 mmol/L (3.5-5.1)
--- NOTE | 2024-01-07 09:30 | Orthopedic Progress Note ---
Date of Service January 07, 2024 Assessment & Plan (1) Neurogenic claudication due to lumbar spinal stenosis: Plan: At this time continue physical therapy monitor his LIBORIO output anticipate discharge home tomorrow. Admission and Anticipated Discharge Date Admission Date: January 05, 2024 Subjective Back pain controlled leg symptoms markedly improved Physical Exam Physical Exam: Patient is up and ambulating halls. Is constricted testing. Results & Data Vital Signs (Past 12 Hours) Vital Signs Temp Pulse Resp BP Pulse Ox O2 Del Method 01/07/24 07:16 36.7 C 83 16 127/78 97 Room Air Queries Orthopedic Spine Obesity: Yes
--- NOTE | 2024-01-07 11:08 | Hospitalist Progress Note ---
Date of Service January 07, 2024 Assessment & Plan (1) S/P spinal surgery: (2) Neurogenic claudication due to lumbar spinal stenosis: Plan: Post op day#2 S/P L3-S1 decompression and fusion by Dr Laura RIVERA # 450 mL Continue pain management Wound management per ortho Hb is 12.5 today, was 12.2 yesterday (was 16 in Oct 2023) Likely Acute blood loss anemia related to surgery Stable Monitor Continue PT/OT (3) Diabetes mellitus, type 2: Plan: A1c: 8.2 on 12/02/2023 (per PCP outpatient note) Hold home oral glycemic agent NovoLog sliding scale per protocol. Glycemic pharmacist managing. Appreciate glycemic management (4) Hyperlipidemia: Plan: Continue atorvastatin (5) GERD (gastroesophageal reflux disease): Plan: Continue PPI (6) Obesity (BMI 30-39.9): Plan: BMI: 35 Lifestyle modifications Previously tried Mounjaro with GI side effects DVT Prophylaxis SCDs per ortho Disposition Per primary service Follows with Cirilo SLOAN at [facility] in [place], [place] for routine care I spent a total of 35 minutes coordinating, documenting and providing care for this patient excluding time spent in performance of separately billed services Admission and Anticipated Discharge Date Admission Date: January 05, 2024 Subjective Patient seen and examined Reports surgical site pain is controlled Doing well with PT/OT Yet to have a BM but passing flatus No Nausea/vomiting/abd pain Physical Exam Constitutional: + well hydrated; no acute distress Eyes: PERRL, conjunctivae normal, anicteric sclerae ENMT: external ear and nose normal, oropharynx normal Respiratory: normal respiratory effort, lungs clear to auscultation Cardiovascular: Rate/Rhythm: regular rate and regular rhythm S1 S2 Gastrointestinal (Abdomen): normal bowel sounds, soft, nontender, no hepatosplenomegaly Musculoskeletal: Clean dressing over surgical site with drain in situ Neurologic: PERRL, EOMI, accommodation nl, no face palsy, no dysarthria Psychiatric: A+Ox3, euthymic affect Results & Data Results & Data Vital Signs (Past 12 Hours) Vital Signs Temp Pulse Resp BP Pulse Ox O2 Del Method 01/07/24 07:16 36.7 C 83 16 127/78 97 Room Air Laboratory Results Abnormal lab results 01/05/24 01/06/24 01/06/24 Range/Units 06:31 16:36 20:38 RBC (4.70-6.10) M/uL Hgb (14.0-18.0) g/dl Hct (42.0-52.0) % BUN/Creatinine Ratio (10-20) Glucose (70-99(Fasting)) mg/dl POC Glucose 180 H 166 H (70-99) mg/dl Crossmatch See Detail 01/07/24 01/07/24 01/07/24 Range/Units 07:38 08:11 11:37 RBC 4.06 L (4.70-6.10) M/uL Hgb 12.5 L (14.0-18.0) g/dl Hct 36.7 L (42.0-52.0) % BUN/Creatinine Ratio 23.9 H (10-20) Glucose 145 H (70-99(Fasting)) mg/dl POC Glucose 139 H 184 H (70-99) mg/dl Crossmatch
--- NOTE | 2024-01-07 14:14 | Pharmacy Report ---
Pharmacy Glycemic Short Note 2 - Date of Service January 07, 2024 - Glycemic Short BSG Results (Last 24 hours): 01/06/24 01/06/24 01/07/24 16:36 20:38 07:38 Glucose POC Glucose 180 H 166 H 139 H 01/07/24 01/07/24 08:11 11:37 Glucose 145 H POC Glucose 184 H OUTPATIENT ANTIDIABETIC REGIMEN: * Glyxambi (empaglifozin 25mg/linagliptin 2mg) #1 tablet daily * HbA1c 8.4% (11/12/23) ASSESSMENT: 01/07: * Patient received total 65 units of insulin yesterday: 28 units basal and 37 units bolus. * BSGs yesterday were [phone] mg/dl. Improved from the day before. * For glycemic control closer to goal, novolog correction tightened slightly at lunch today. IV Dexamethasone continues for one more day. 01/06: * BSGs yesterday were [phone] mg/dl. Fasting BSG today was 143 mg/dl. * Patient received total 58 units of insulin yesterday: 20 units basal and 38 units bolus. * IV Dexamethasone 6mg daily x 3 days ordered, 1st dose received today. * Since BSGs have been high, basal insulin dose increased to stress of 3 today. Novolog parameters tightened also to stress of 3. 01/05/24: * Rodriguez is a 48 YOM admitted status post L3-S1 spinal decompression/fusion and a history fo type 2 diabetes mellitus. Pharmacy has been consulted to assist with glycemic management while inpatient. * Fasting BSG this AM initiate Lantus at a ~0.2 units/kg to cover basal needs and preop steroids. * Currently receiving perioperative Ancef and will receive IV dexamethasone 6mg x3 days. * Novolog initiated at a weight based stress of 3 based on AdjBW. PLAN FOR INPATIENT GLYCEMIC CONTROL: * Hold outpatient oral diabetes medications * Basal insulin * Lantus 28 units SQ QAM * Bolus insulin * NovoLog per scale ACHS or Q6hrs while NPO * Goal Range: Low 110 mg/dL - High 140 mg/dL * Correction Factor: 10 mg/dL/unit * Nutritional / Prandial insulin per carb ratio of 1 unit per 5 grams CHO consumed
[2024-01-07] MEDS: MAGNESIUM HYDROXIDE SUSP 30 ML UDC PO PRN (17:44)
[2024-01-08 06:25] LABS: Hematocrit (blood only) 36.4 % (42.0-52.0); Hemoglobin 12.6 g/dl (14.0-18.0); Mean Corpuscular Hgb Conc 34.6 g/dL (32.0-36.0); Mean Corpuscular Volume 89.7 fL (80.0-100.0); Platelet Count 176 K/uL (130-400); RDW Coefficient of Variation 12.6 % (11.5-14.5); RDW Standard Deviation 41.7 fL (36.4-46.3); Red Blood Count 4.06 M/uL (4.70-6.10); White Blood Count 10.33 K/ul (4.8-10.8)
--- NOTE | 2024-01-08 10:56 | Discharge Summary ---
Date of Service January 08, 2024 Admission HPI Per Admitting Provider This is a 40-year-old male who presents chronic persistent back and leg pain a failed course of nonoperative care is here for surgical invention. Principal Diagnosis Lumbar spinal stenosis with neurogenic claudication Discharge Data Allergies Allergy/AdvReac Type Severity Reaction Status Date / Time metformin Allergy Intermediate GI upset Verified 01/05/24 06:40 tirzepatide [From Mounjaro] Allergy Intermediate GI upset Verified 01/05/24 06:40 rosuvastatin [From Crestor] AdvReac Intermediate paresthesia Verified 01/05/24 06:40 s Consultations 01/05/24 11:57 Consult Hospitalist Routine Procedures Performed Operation Date: 01/05/24 07:45 Actual Procedures p L3-S1 Revision Decompression and Fusion, with Application of Bone Morphogenetic Protein, MagnetOs Bone Graft and Morpheus Bone Graft, Interbody Fusion, Spinal Cord Monitoring(Not Applicable) - Benjamin Sanchez DO Ordered Studies 01/05/24 07:45 [place] lumbar spine 2-3V Routine Hospital Course (1) Neurogenic claudication due to lumbar spinal stenosis: Patient underwent multilevel lumbar depression fusion tolerated as well as negative orthopedic for postoperative. Possibly progressed appropriately. LIBORIO drain decreasing well Strength testing subsequently discharged home. Discharge orders instructions found in chart for further review. Total Time Total Time Spent Total Time Spent (In Minutes): 20 minutes Discharge Plan Discharge Items Patient Disposition: Home - Self-Care Reason For Visit: Spinal Stenosis, Lumbar Region without Neurogenic Discharge Diagnosis: Lumbar spinal stenosis with neurogenic claudication Activity: As commented below Non-emergency contact: Primary Care Provider Call non-emergency contact if: you have any medication questions Follow-up/Referrals: Prince Dowd M.D. [Primary Care Provider] - Diet: Regular Ambulatory Orders: Type and Screen (Routine) Timeframe: 1 Day Location: Determined by Patient Ordered By: Tonia Corrigan Attending Provider Instructions: ACTIVITY RECOMMENDATIONS: SELF CARE INSTRUCTIONS AFTER THORACIC/LUMBAR FUSIONS 1. You may walk to your tolerance. It is good exercise for your legs and back. Expect some back and intermittent leg aches and pains. 2. You may perform "counter-top" level activities (make a sandwich, billy with a project, etc.). 3. No bending or lifting of more than 10 pounds or back twisting of any nature (roll like a log when turning in bed). 4. You may ride in a car for 20-30 minutes at a time. No driving until after your first visit with your doctor. 5. Frequent changes of position and restricting sitting to 30 minutes at a time will help limit the amount of back spasms and stiffness you may experience. 6. You may discontinue the use of ambulatory aids (cane, crutches, etc.) once your strength and confidence allow. 7. You may line supply the shower and let water strike your incision when you arrive home at least once daily. Do not take a tub bath, sit in a hot tub or go into a swimming pool until after your first recheck in the office. SPECIAL CARE INSTRUCTIONS: VERY IMPORTANT TO READ AND REVIEW A. Your surgical incision has been closed with a cosmetic suture under the skin that will dissolve in about 6 weeks. In 14 days, you can use a pair of clean scissors and cut the suture that is left outside of the skin at the ends of your incision. 1. The small skin tapes can be removed 7 days after surgery if they have not fallen off by that point. 2. You may keep the wound open to air as much as possible to promote healing after post-op day number 5 unless told otherwise by your doctor. 3. If you think the wound looks like it is becoming infected (redness or worsening drainage) and/or you are experiencing fever, chill or worsening back pain and muscle spasms, contact the office so that we may evaluate you as soon as possible. B. Complications are uncommon, but please contact us if you have any signs or symptoms of: 1. wound infection (fever higher than 102.5 degrees F, redness, separation of wound, drainage, or increasing pain from the incision) 2. blood clots in legs (pain, swelling, redness and warmth in legs) 3. urinary tract infection (fever higher than 102.5 degrees F, burning upon urination or increased frequency of urination) 4. nerve problems (inability to walk on your toes or heels, numbness, loss of bowel or bladder control) 5. any other symptoms that concern you C. Please call the office at if you have any concerns or questio ns about your operation or recovery. D. No smoking! Smoking drastically decreases the chance of a solid fusion. E. Do not take any anti-inflammatory medications (Indocin, Advil, Motrin, Aspirin, Naprosyn, etc.) as these may inhibit the chance of a solid fusion. Tylenol is okay to take for pain. MANAGING PAIN AFTER SPINAL SURGERY 1. Narcotic medication is intended for short-term use and will be provided for surgical pain. Surgical pain usually lasts for a period of 4-6 weeks. Narcotic medication includes Percocet, Vicodin, Darvocet, Tylenol #3 or Lortab. 2. Longer-term pain is more appropriately treated with non-narcotic medication such as Tylenol ES. 3. Muscle spasm is not appropriately treated with narcotics. Muscle relaxers such as Soma, Flexeril or Skelaxin can be used along with Tylenol ES. 4. Remember that we all live with some "aches and pains". This is not unusual or uncommon after an injury or as we get older. a. Back pain is expected and may include muscle spasms for 4 to 6 weeks after surgery. The pain should gradually improve. If the pain worsens for no apparent reason, please contact the office. b. Intermittent leg pain may also be experienced and should not be concerned about unless it worsens for no apparent reason. If so, please contact the office. 5. We will provide appropriate medication within the normal guidelines of their prescribed use. We will also be very cautious and aware of potential abuse and extended duration of patients' medication needs. a. Pain medications are for your comfort and to assist with sleep and rest so that the tissue can heal. They are not provided in order to return to normal activity and should not be used through the day. To do so or worsening pain at night can result from ongoing tissue damage and development of tolerance to the prescribed medicine. 6. Please allow 2-3 days to process refills. Prescriptions will not be mailed but must be picked up at the office. FOLLOW UP VISIT: Keep your scheduled follow-up appointment. Any questions, please call the office at . Pending Studies at Discharge: No Stand-Alone Forms: My [employer], Smoking Cessation Medications and DC Order Prescriptions: New tramadol 50 mg tablet 50 mg PO Q6H PRN (Reason: pain, moderate) Qty: 30 0RF oxycodone 5 mg tablet 5 mg PO Q6H PRN (Reason: pain) Qty: 30 0RF Continued atorvastatin 10 mg Tablet 10 mg PO HS pantoprazole 40 mg Tablet,Delayed Release (Dr/Ec) 40 mg PO QAM Glyxambi 25-5 mg Tablet 1 tab PO QAM Discharge Orders: Discharge Order (Routine); Ordered 01/08/24 Ordered By: Benjamin Sanchez Admission Data Admit Date/Time: 01/05/24 10:53 Attending Provider: Benjamin Sanchez Admit Provider: Benjamin Sanchez Primary Care Provider: Prince Dowd Other Providers: Priscilla Barajas
== END 2024-01-08 12:38 | disposition home or self-care (01) | DRG 454 ==
LOC: ASU 06:03 → 3E 10:53